=== PATIENT | male | born 1960 | race Asian ===

== ENCOUNTER → 2017-02-11 | Outpatient (CLI) | payer OTHER ==
[~2017-02-11] MED LIST: ASPI-621 PO; ATOR40TA PO; INSU100V8 SQ; LISI-167 PO; LISI2.5T PO; METF500T4 PO; METO25TA35 PO; SIMV5TAB5 PO
== END | disposition home or self-care (01) ==
LOC: CFH 09:04
PROVIDERS: ATTEND Orthopaedic Surgery Orthopaedic Surgery of the Spine
DX: M47.896 Other spondylosis, lumbar region (principal); M51.26 Other intervertebral disc displacement, lumbar region; M79.604 Pain in right leg
CPT/HCPCS: 72148